=== PATIENT | female | born 1970 | race Caucasian/White ===

== ENCOUNTER 2021-11-23 19:29 | Inpatient (IN) | payer OTHER ==
[~2021-11-23] VITALS: Ht 154.9 cm; Wt 75.8 kg
[~2021-11-23 19:29] MED LIST: IBUP400; LATA.005SO BOTHEYES; LISHYD1012 PO; LOSA50 PO; Norco 5-325 Ta1 EACH PO; Pravachol40 MG PO
[2021-11-23 20:07] LABS: BASOPHILS ABSOLUTE AUTO 0.07 K/mm3 (0.00-0.23); BASOPHILS PERCENT AUTO 1 % (0-2); EOSINOPHILS ABSOLUTE AUTO 0.21 K/mm3 (0.00-0.68); EOSINOPHILS PERCENT AUTO 2 % (0-6); Hematocrit 40.3 % (33.0-51.0); IMMATURE GRAN ABSOLUTE AUTO 0.06 K/mm3 (0.00-0.10); IMMATURE GRAN PERCENT AUTO 1 % (0-1); LYMPHOCYTES ABSOLUTE AUTO 2.75 K/mm3 (0.84-5.20); LYMPHOCYTES PERCENT AUTO 22 % (21-46); MONOCYTES ABSOLUTE AUTO 0.93 K/mm3 (0.16-1.47); MONOCYTES PERCENT AUTO 7 % (4-13); Mean Corpuscular HGB 35.1 pg (26.0-34.0); Mean Corpuscular HGB Conc 34.7 g/dL (31.5-36.5); Mean Corpuscular Volume 101 fL (80-100); Mean Platelet Volume 10.1 fL (9.1-12.4); NEUTROPHILS ABSOLUTE AUTO 8.65 K/mm3 (1.96-9.15); NEUTROPHILS PERCENT AUTO 68 % (41-73); Platelet Count 360 K/mm3 (150-400); RDW Coefficient Variation 11.9 % (11.7-14.2); RDW Standard Deviation 44.3 fL (35.1-46.3); Red Blood Cell Count 3.99 M/mm3 (3.80-5.20); White Blood Cell Count 12.67 K/mm3 (4.00-11.30)
[2021-11-23 20:23] LABS: Albumin, Blood 3.5 g/dL (3.4-5.0); Albumin/Globulin Ratio 0.9 (0.8-1.8); Bilirubin, Total 0.3 mg/dL (0.1-1.0); Bun/Creatinine Ratio 13.4 (12.0-20.0); Calcium, Blood 9.1 mg/dL (8.5-10.1); Creatinine, Blood 0.67 mg/dL (0.40-1.00); Globulin, Blood 3.9 g/dL (2.2-4.0); Potassium, Blood 3.9 mmol/L (3.5-5.5); Total Protein, Blood 7.4 g/dL (6.4-8.2)
[2021-11-24] MEDS ORDERED: CARVEDILOL6.25 MG (01:24)
[2021-11-24] MEDS ORDERED: ROSUVASTATIN CAL5 MG PO (01:25)
[2021-11-24 04:19] LABS: BASOPHILS ABSOLUTE AUTO 0.04 K/mm3 (0.00-0.23); BASOPHILS PERCENT AUTO 0 % (0-2); EOSINOPHILS ABSOLUTE AUTO 0.16 K/mm3 (0.00-0.68); EOSINOPHILS PERCENT AUTO 2 % (0-6); Hematocrit 38.7 % (33.0-51.0); Hemoglobin 12.9 g/dL (11.5-16.0); IMMATURE GRAN ABSOLUTE AUTO 0.06 K/mm3 (0.00-0.10); IMMATURE GRAN PERCENT AUTO 1 % (0-1); LYMPHOCYTES ABSOLUTE AUTO 2.05 K/mm3 (0.84-5.20); LYMPHOCYTES PERCENT AUTO 22 % (21-46); MONOCYTES ABSOLUTE AUTO 0.66 K/mm3 (0.16-1.47); MONOCYTES PERCENT AUTO 7 % (4-13); Mean Corpuscular HGB 34.4 pg (26.0-34.0); Mean Corpuscular HGB Conc 33.3 g/dL (31.5-36.5); Mean Corpuscular Volume 103 fL (80-100); Mean Platelet Volume 9.6 fL (9.1-12.4); NEUTROPHILS ABSOLUTE AUTO 6.52 K/mm3 (1.96-9.15); NEUTROPHILS PERCENT AUTO 69 % (41-73); Platelet Count 305 K/mm3 (150-400); RDW Standard Deviation 45.5 fL (35.1-46.3); Red Blood Cell Count 3.75 M/mm3 (3.80-5.20); White Blood Cell Count 9.49 K/mm3 (4.00-11.30)
[2021-11-24 04:33] LABS: Source, Urine Clean Catch
[2021-11-24 04:35] LABS: Bilirubin, Urine Neg (Neg); Blood, Urine Neg (Neg); Glucose Qualitative, Urine Neg (Neg); Ketones, Urine Neg (Neg); Leukocyte Esterase, Urine 1+ (Neg); Nitrite, Urine Neg (Neg); Protein, Urine Neg (Neg); Urobilinogen, Urine NORM (Normal)
[2021-11-24 04:37] LABS: Appearance, Urine Clear (Clear); Color, Urine Yellow (P-Yellow)
[2021-11-24 04:44] LABS: Albumin, Blood 3.2 g/dL (3.4-5.0); Albumin/Globulin Ratio 0.9 (0.8-1.8); Bilirubin, Total 0.4 mg/dL (0.1-1.0); Bun/Creatinine Ratio 11.6 (12.0-20.0); Calcium, Blood 8.4 mg/dL (8.5-10.1); Creatinine, Blood 0.69 mg/dL (0.40-1.00); Globulin, Blood 3.5 g/dL (2.2-4.0); Potassium, Blood 3.6 mmol/L (3.5-5.5); Total Protein, Blood 6.7 g/dL (6.4-8.2)
[2021-11-24 04:47] LABS: Bacteria Rare /hpf; Red Blood Cells, Urine Not Seen /hpf (0-2); Squamous Epithelial Cells Few /hpf (Few)
--- NOTE | 2021-11-24 07:08 | NUR ---
SHIFT SUMMARY PT IS ALERT AND ORIENTED. PT DENIES CHEST PAIN/PRESSURE. SHE DENIES SOB. REPORTING ABDOMINAL CRAMPING OF 8-10/10. SHE IS ON ROOM AIR WITH SATS ABOVE 92%. INFUSING FLUIDS @150. SHE HAS REMAINED NPO T/O THE NIGHT. SHE IS ABLE TO GET UP SBA TO BATHROOM. CALL LIGHT IS WITHIN REACH.
--- NOTE | 2021-11-25 06:18 | NUR ---
SHIFT SUMMARY PT IS ALERT AND ORIENTED X4. THERE HAVE BEEN NO ACUTE CHANGES T/O THE NIGHT. PT'S BP HAS BEEN ELEVATED AT TIMES OTHER VITLAS WNL. SHE IS ON ROOM AIR WITH SATS ABOVE 92%. PT HAS REPORTED PAIN OF 7-9/10 IN LOWER ABODOMEN AND HAS BEEN MEDICATED PER ORDER. PT IS ABLE TO GET UP TO THE BATHROOM WITH SBA. CALL LIGHT IS WITHIN REACH.
--- NOTE | 2021-11-25 16:02 | NUR ---
TRANSFER [id number] TO [id number] ADVISED OF TRANSFER TO MEDICAL FLOOR, DISCUSSED TRANSFER WITH THE PATIENT AND FAMILY, CALLED REPORT TO MEDICAL FLOOR RN. PT TAKEN TO NEW ROOM BY THIS RN WITH ASSISTANCE TO HER NEW ROOM WITHOUT INCIDENT, PATIENT IN STABLE CONDITION AT TIME OF DEPARTURE AND ARRIVAL TO NEW ROOM.
--- NOTE | 2021-11-25 16:57 | NUR ---
SHIFT SUMMARY 1555 RECEIVED PT TO RM 334 FROM PCU 16. PT IS A&O, PLEASANT AND CO-OP. PER REPORT, PT IS INDEPENDENT IN RM AND TO BTHRM. PT RECEIVING IV ABX, PAIN MEDICATION, AND BOWEL REST; ON CL DIET AT THIS TIME. COREG DOSE INCREASED TO HELP CONTROL BP; SEE CHART. DENIED FURTHER NEEDS AT THIS TIME. CALL LT IN REACH.
--- NOTE | 2021-11-26 05:10 | NUR ---
SHIFT SUMMARY PT WAS FEELING SOME DISCOMFORT AT THE BEGINNING OF THE VENING. SHE FELT THOUGH SHE NEEDED TO HAVE A BM. BOWEL MEDS WERE NOT SCHEDULED FOR THE MORNING SO THE PT AGREED TO DRINK PRUNE JUICE. SHE WAS ABLE TO HAVE A BM AND FELT MUCH BETTER. SHE ONLY NEEDE PAIN MEDICATION ONCE. BED IN LOWEST POSITION AND CALL LIGHT IN REACH
[2021-11-26 05:21] LABS: Hematocrit 40.6 % (33.0-51.0); Hemoglobin 13.8 g/dL (11.5-16.0); Mean Corpuscular HGB 34.8 pg (26.0-34.0); Mean Corpuscular Volume 103 fL (80-100); Mean Platelet Volume 9.8 fL (9.1-12.4); Platelet Count 293 K/mm3 (150-400); RDW Coefficient Variation 11.9 % (11.7-14.2); RDW Standard Deviation 44.9 fL (35.1-46.3); Red Blood Cell Count 3.96 M/mm3 (3.80-5.20); White Blood Cell Count 8.57 K/mm3 (4.00-11.30)
[2021-11-26 05:49] LABS: Albumin, Blood 2.9 g/dL (3.4-5.0); Anion Gap 6 mmol/L (6-16); Blood Urea Nitrogen 6 mg/dL (8-24); Bun/Creatinine Ratio 9.1 (12.0-20.0); CO2, Blood 29 mmol/L (21-32); Calcium, Blood 8.9 mg/dL (8.5-10.1); Chloride, Blood 103 mmol/L (98-108); Creatinine, Blood 0.66 mg/dL (0.40-1.00); Glomerular Filtration Rate 105 (60-); Glucose, Blood 97 mg/dL (70-99); Phosphorus, Blood 3.5 mg/dL (2.5-4.9); Potassium, Blood 3.9 mmol/L (3.5-5.5); Sodium, Blood 138 mmol/L (136-145)
--- NOTE | 2021-11-26 18:24 | NUR ---
SHIFT SUMMARY PT RESTING QUIETLY AT START OF SHIFT, UNTIL BREAKFAST. TOLERATING CL DIET AND WANTING TO ADVANCE DIET. PT MEDICATED FOR C/O PAIN X1 NORCO THIS SHIFT. PT UP INDEPENDENT IN AND WALKING IN HALLS SEVERAL TIMES TODAY. DR SPARKSTRATE IN TO SEE PT EARLIER, INFORMING PT ALL LABS WNL'S. PT NOT WANTING TO GO HOME TODAY; PT TO D/C IN AM. DIET ADVANCED TO SOFT, PER PT REQUEST; TOLERATED WELL. IN TO VISIT THIS AFTERNOON. UP TO BTHRM TO SHOWER INDEPENDENTLY. IV ABX INFUSING AT THIS TIME. CALL LT IN REACH.
--- NOTE | 2021-11-27 04:52 | NUR ---
SHIFT SUMMARY NO ACUTE CHANGES. PT HAS BEEN SLEEPING WHOLE SHIFT, NO COMPLAINS OF PAIN. NO ISSUES WITH BM. PT STILL STATES SHE NEEDS TO GO, BUT IT DOESN'T FEEL " BAD IT DID." BED IN LOWEST POSITION AND CALL LIGHT IN REACH
[2021-11-27 05:23] LABS: BASOPHILS ABSOLUTE AUTO 0.04 K/mm3 (0.00-0.23); BASOPHILS PERCENT AUTO 1 % (0-2); EOSINOPHILS ABSOLUTE AUTO 0.19 K/mm3 (0.00-0.68); EOSINOPHILS PERCENT AUTO 2 % (0-6); Hematocrit 41.4 % (33.0-51.0); IMMATURE GRAN ABSOLUTE AUTO 0.04 K/mm3 (0.00-0.10); IMMATURE GRAN PERCENT AUTO 1 % (0-1); LYMPHOCYTES ABSOLUTE AUTO 1.75 K/mm3 (0.84-5.20); LYMPHOCYTES PERCENT AUTO 20 % (21-46); MONOCYTES ABSOLUTE AUTO 0.75 K/mm3 (0.16-1.47); MONOCYTES PERCENT AUTO 9 % (4-13); Mean Corpuscular HGB 34.7 pg (26.0-34.0); Mean Corpuscular HGB Conc 33.8 g/dL (31.5-36.5); Mean Corpuscular Volume 103 fL (80-100); Mean Platelet Volume 10.5 fL (9.1-12.4); NEUTROPHILS ABSOLUTE AUTO 5.94 K/mm3 (1.96-9.15); NEUTROPHILS PERCENT AUTO 68 % (41-73); Platelet Count 269 K/mm3 (150-400); RDW Coefficient Variation 11.9 % (11.7-14.2); RDW Standard Deviation 44.9 fL (35.1-46.3); Red Blood Cell Count 4.03 M/mm3 (3.80-5.20); White Blood Cell Count 8.71 K/mm3 (4.00-11.30)
[2021-11-27] MEDS ORDERED: Carvedilol12.5 MG PO (09:15)
[2021-11-27] MEDS ORDERED: AMOCLA875 PO (09:15)
[2021-11-27] MEDS ORDERED: ONDA4ODT MM (09:15)
[2021-11-27] MEDS ORDERED: Acetaminophen325 M1 PO (09:15)
[2021-11-27] MEDS ORDERED: Norco 5-325 Ta1 EACH PO (09:16)
[2021-11-27] MEDS ORDERED: MIRALAX17 GM PO (09:16)
[2021-11-27] MEDS ORDERED: VISBIOME 112.51 EACH PO (09:17)
[2021-11-27] MEDS ORDERED: BISA10S PR (11:46)
[2021-11-27] MEDS ORDERED: DULCOLAX400 MG/5 M PO (11:49)
[2021-11-27] MEDS ORDERED: DOCUZEN 8.6-501 EACH PO (11:49)
--- NOTE | 2021-11-27 15:21 | NUR ---
PATIENT D/C'D TO HOME WITH FAMILY. D/C INSTRUCTIONS AND EDUCATION DISCUSSED WITH PATIENT AND COPY PROVIDED. RX MEDICATIONS FAXED TO [facility] IN [place]. PATIENT DENIES ANY FURTHER QUESTIONS OR CONCERNS. HARD SCRIPT FOR OXYCODONE GIVEN TO PATIENT TO TAKE TO PHARMACY.
== END 2021-11-27 15:20 | disposition home or self-care (01) | DRG 872 ==
LOC: ER 19:29 → PCU 22:44 → MEDS 11-25 16:02
PROVIDERS: Family Medicine; Internal Medicine; Physician Assistant; ADMIT Internal Medicine
DX: A41.9 Sepsis, unspecified organism (principal); K57.20 Diverticulitis of large intestine with perforation and abscess without bleeding; I10 Essential (primary) hypertension; G47.33 Obstructive sleep apnea (adult) (pediatric); Z99.81 Dependence on supplemental oxygen; Z88.8 Allergy status to other drugs, medicaments and biological substances; Z85.820 Personal history of malignant melanoma of skin; Z90.710 Acquired absence of both cervix and uterus; Z90.49 Acquired absence of other specified parts of digestive tract; Z98.890 Other specified postprocedural states; K57.90 Diverticulosis of intestine, part unspecified, without perforation or abscess without bleeding
CPT/HCPCS: 36415; 74176; 80053; 80069; 81001; 83690; 85025; 85027; 86140; 96365; 96375; 99284-25; A9270; J0295; J0360; J1170; J1885; J2270; J2405; J2543; J7030; J7040

== ENCOUNTER 2023-01-21 11:14 | Day surgery (SDC) | payer OTHER ==
[~2023-01-21] VITALS: Ht 154.9 cm; Wt 74.2 kg
[~2023-01-21 11:14] MED LIST changes: +AMOCLA875 PO; +Acetaminophen325 M1 PO; +BISA10S PR; +CARVEDILOL6.25 MG; +Carvedilol12.5 MG PO; +DOCUZEN 8.6-501 EACH PO; +DULCOLAX400 MG/5 M PO; +MIRALAX17 GM PO; +ONDA4ODT MM; +ROSUVASTATIN CAL5 MG PO; +VISBIOME 112.51 EACH PO
[2023-01-21] MEDS ORDERED: LOSA25 (11:31)
[2023-01-21 13:14] VITALS: BP 155/98
== END 2023-01-21 13:12 | disposition home or self-care (01) ==
LOC: ORSCSDS 11:14
PROVIDERS: Internal Medicine Gastroenterology
PROC: 0DB58ZX Excision of Esophagus, Via Natural or Artificial Opening Endoscopic, Diagnostic (ICD-10-PCS; principal; 2023-01-21 12:30)
PROC: 0D757ZZ Dilation of Esophagus, Via Natural or Artificial Opening (ICD-10-PCS; principal; 2023-01-21 12:30)
PROC: 0DB78ZX Excision of Stomach, Pylorus, Via Natural or Artificial Opening Endoscopic, Diagnostic (ICD-10-PCS; principal; 2023-01-21 12:30)
DX: R13.10 Dysphagia, unspecified (principal); K20.80 Other esophagitis without bleeding; K29.70 Gastritis, unspecified, without bleeding; K21.9 Gastro-esophageal reflux disease without esophagitis; I10 Essential (primary) hypertension; G47.33 Obstructive sleep apnea (adult) (pediatric); Z85.820 Personal history of malignant melanoma of skin; E78.5 Hyperlipidemia, unspecified; Z79.899 Other long term (current) drug therapy
CPT/HCPCS: 88305; 88312; 88342; J0461; J2001; J2405; J2704; J7120; Q9968